=== PATIENT | female | born 2000 | race African-American/Black ===

== ENCOUNTER 2021-05-17 14:22 | Emergency (ER) | payer OTHER ==
[~2021-05-17] VITALS: Ht 157.5 cm; Wt 49.0 kg
[2021-05-17 19:16] LABS: GC DNA AMPLIFICATION NEGATIVE (NEGATIVE)
[2021-05-17 19:50] VITALS: BP 118/65
== END 2021-05-17 19:50 | disposition home or self-care (01) ==
LOC: M ED 14:22
DX: N93.9 Abnormal uterine and vaginal bleeding, unspecified (principal)